=== PATIENT | male | born 1955 | race Two or more races ===

== ENCOUNTER 2023-02-14 11:17 | Emergency (ER) | payer OTHER ==
[~2023-02-14] VITALS: Ht 182.9 cm; Wt 100.0 kg
[2023-02-14 11:49] LABS: Basophils # (auto) 0 10 ^3/uL (0-0.2); Eosinophils # (auto) 0.1 10 ^3/uL (0-0.8); Hemoglobin 12.3 g/dL (13.5-17.5); Lymphocytes # (auto) 0.4 10 ^3/uL (0.4-5.4); Monocytes # (auto) 0.6 10 ^3/uL (0-1.3); Neutrophils # (auto) 5.5 10 ^3/uL (1.6-8.6); White Blood Cell 6.7 10^3/uL (4.4-10.8)
[2023-02-14 11:50] LABS: Basophils % (auto) 0.6 % (0.0-2.0); Eosinophils % (auto) 0.9 % (0.0-7.0); Hematocrit 34.4 % (41.0-53.0); Lymphocytes % (auto) 6.6 % (10.0-50.0); Mean Corpuscular Hemoglobin 32.3 pg (28.0-32.0); Mean Corpuscular Hgb Conc. 35.8 g/dL (32.0-36.0); Mean Corpuscular Volume 90.2 fL (80.0-100.0); Monocytes % (auto) 9.1 % (0.0-12.0); Neutrophils % (auto) 82.8 % (37.0-80.0); Nucleated Red Blood Cells % 0.1 %; Red Blood Cells 3.81 10^6/uL (4.5-5.90); Red Cell Distribution Width 13.1 % (11.8-14.3)
[2023-02-14] MEDS ORDERED: predniSONE 20 MG TAB PO ONE (12:45)
[2023-02-14] MEDS ORDERED: PANTOPRAZOLE 40 MG TAB PO ONE (12:45)
[2023-02-14 13:12] LABS: Albumin 3.7 g/dL (3.4-5.0); Calcium 9.8 mg/dL (8.5-10.1); Magnesium 2.3 mg/dL (1.6-2.6); Potassium 3.7 mmol/L (3.5-5.1)
[2023-02-14 13:16] LABS: Bilirubin, Total 0.2 mg/dL (0.2-1.0); Total Protein 7.1 g/dL (6.4-8.2)
[2023-02-14] MEDS ORDERED: PRED20TA2 PO (13:16)
[2023-02-14] MEDS ORDERED: PRED10TA PO (13:16)
[2023-02-14] MEDS ORDERED: PANT40TA2 PO (13:16)
[2023-02-14 14:08] VITALS: BP 149/66
== END 2023-02-14 14:17 | disposition home or self-care (01) ==
LOC: ER 11:17
DX: G51.0 Bell's palsy (principal)
CPT/HCPCS: 36415; 70450; 71045; 80053; 83735; 84484; 85025; 93005; 99285; J7512